=== PATIENT | female | born 1945 | race Caucasian/White ===

== ENCOUNTER 2023-12-04 17:42 | Emergency (ER) | payer MEDICARE, SELFPAY ==
[2023-12-04 17:46] VITALS: BP 176/106
[2023-12-04 18:14] LABS: % Basophils 0.5 % (0-2); % Eosinophils 1.6 % (0-6); % Immature Granulocytes 0.2 % (0-0.5); % Lymphocytes 32.3 % (20.5-51.1); % Monocytes 12.4 % (1.7-9.3); Absolute Eosinophils 0.1 10^3/uL (0-0.7); Absolute Monocytes 0.8 10^3/uL (0.1-0.6); Absolute Neutrophils 3.3 10^3/uL (1.4-6.5); Hematocrit 38.7 % (37.0-47.0); Hemoglobin 13.1 g/dL (12.0-16.0); Mean Corp Hgb Conc. 33.9 g/dL (33.0-37.0); Mean Corpuscular Hgb 30.2 pg (27.0-31.0); Mean Corpuscular Volume 89.2 fL (81.0-99.0); Mean Platelet Volume 9.3 fL (7.4-10.4); Nucleated Red Blood Cells % 0 %; Platelet Count 238 10^3/uL (130-400); Red Blood Cell Count 4.34 10^6/uL (4.20-5.40); Red Cell Dist. Width 14.6 % (11.5-14.5); White Blood Cell Count 6.2 10^3/uL (4.8-10.8)
--- NOTE | 2023-12-04 18:31 | ED.GENMED ---
History of Present Illness
General
Chief Complaint: Heart Rate Problem
Source: patient and spouse
Exam Limitations: none
Time Seen by Provider: 12/04/23 18:22
Nursing documentation reviewed up to this point in time: agreed with
History of Present Illness
History of Present Illness:
78-year-old female with palpitations, diaphoresis and hypertension. She has a history of atrial fibrillation and is on Eliquis. She has had 2 ablations. This was by Dr. Carl. She was seen 1 month ago in ED at [facility].
Past History
Past History
ED Past Medical History: Arrthythmia (Atrial fib), HTN and Hypercholesterolemia
ED Past Surgical History: Cardiac (Cardiac ablation)
Patient has exhibited threatening behavior?: No
PSI?: No
Social History
Tobacco: Non-smoker
Alcohol: Occasional
Personal: (Refused to answer as said this is not important)
Living: with family (patient unwilling to answer as again feels is not important,)
Family History
Family History: Negative Early CAD
Review of Systems
Review of Systems
Allergies reviewed?: Yes
All Other Systems: Not applicable
Constitutional: Reports no symptoms
EENT: Reports no symptoms
Respiratory: Reports no symptoms
Cardiac: Reports diaphoresis and palpitations
ABD/GI: Reports no symptoms
: Reports no symptoms
Musculoskeletal: Reports no symptoms
Skin: Reports no symptoms
Neurological: Reports no symptoms
Endocrine: Reports no symptoms
Hematologic/Lymphatic: Reports no symptoms
Psychiatric: Reports no symptoms
Phy Exam
Physical Exam
Physical Exam:
Physical Exam
General: no apparent distress, not acutely ill
Neck: supple. no meningeal signs. normal posterior pharynx
Heart: s1/s2 tachycardia, no murmur. equal radial
pulses.
HEENT: Pupils equal round reactive to light, EOMI
Lungs: no acute respiratory distress. clear bilaterally
Abdomen: normal bowel sounds. not tender. no CVAT
Neuro: alert and oriented. no focal neurological deficits cranial nerves II through XII intact
Skin: no rash
Psychiatric: well kept. interactive and cooperative
Extremities: no edema. no calf tenderness. negative homans. good distal pulses
Course
Orders/Labs/Results
Orders:
Orders
12/04/23 17:43
EKG [Electrocardiogram (*1)] Urgent
Reason for Study: Tachycardia
EKG- Treatment ONCE
12/04/23 17:58
Complete Blood Count/With Diff Urgent
Comprehensive Metabolic Panel Urgent
Troponin I Urgent
12/04/23 18:31
Electrocardiogram (*1) Urgent
Reason for Study: Abnormal EKG
EKG- Treatment ONCE
12/04/23 19:29
Amlodipine [Norvasc] 2.5 mg PO STAT STA
Abnormal Lab Results
12/04/23
17:58
RDW 14.6 H %
(11.5-14.5)
Absolute Monos (auto) 0.8 H 10^3/uL
(0.1-0.6)
Monocytes % 12.4 H %
(1.7-9.3)
BUN 18 H mg/dl
(7-17)
Glucose 107 H mg/dl
(70-99)
12/04/23 17:58
12/04/23 17:58
Vital Signs
Initial and Last Documented VS:
Initial Vital Signs
Temp Pulse Resp BP Pulse Ox
98.5 F 128 16 176/106 99
12/04/23 17:46 12/04/23 17:46 12/04/23 17:46 12/04/23 17:46 12/04/23 17:46
Last Documented Vital Signs
Temp Pulse Resp BP Pulse Ox
98.5 F 66 10 158/99 96
12/04/23 17:46 12/04/23 19:54 12/04/23 19:54 12/04/23 19:54 12/04/23 19:54
MDM/Problems Addressed
Differential Diagnosis Includes:
Atrial tachycardia, hypertension
MDM/Problems Addressed:
78-year-old female with paroxysmal atrial tachycardia and accelerated hypertension. Blood pressure improved in ED, and spontaneously converted to sinus rhythm in ED. Xysmal
Chronic conditions affecting care: HTN and Arrhythmia
Acute Exacerbation and/or Progression of Chronic Illness: HTN and Arrhythmia
*Pulse Oximetry
Patient hypoxic: no
*EKG
Interpreted by ED Provider?: Yes
EKG Intrepretation Date: 12/04/23
EKG Intrepretation Time: 17:46
Interpretation: abnormal
Comparison EKG: changes noted
Heart Rate: 103
Rate: tachycardiac
Rhythm: other (atrial tachycardia)
[place]: normal axis
Interval: second degree mobitz I
QRS Pattern: left vent hypertrophy
Ischemia: no ischemia
*Rinkman Interpretation
Rate: normal
Interpretation: normal
Heart Rate: 72
Rhythm: sinus
*Critical Care Note
Total Time (30-74mins, 75-104mins- exclusive of procedures): 30
comment:
Critical care statement: A total of 30 minutes of critical care time was provided for this patient. This includes management of unstable vital signs, evaluation of the patient at bedside, reviewing the patient's pertinent medical records, discussion
with consultants, review of old EKGs and review of pertinent medical records. This time with separate from time utilized to perform the aforementioned documented procedures
Data Reviewed
Review of Other/Old Records Reveals: Operative Reports (Prior cardiac ablation)
Patient Management
Social determinants of health affecting care: Living situation
Discussion with other providers: [employer] Supervisor (Cardiology, Dr. Sylvie Carl)
Escalation/DeEscalation of care consider admission/obs:
Admit not indicated
ED Attending Note
-
Portions of this chart may have been created with voice recognition software.� Occasional wrong word or��sound alike� substitutions may have occurred due to the inherent limitations of voice recognition software.
Discharge Plan
Departure
Patient Disposition: Home (Routine Discharge)
Date of Disposition: 12/04/23
Time of Disposition: 20:05
Patient with high blood pressure during this ER visit?: Yes
Condition: Good
Discharge Problem:
Paroxysmal atrial tachycardia, Hypertension
Instructions: Arrhythmias (DC), High Blood Pressure ED
Prescriptions:
New
amlodipine 2.5 mg tablet
2.5 mg PO DAILY Qty: 30 0RF
No Action
pravastatin [Pravachol] 40 MG tablet
40 mg PO QPM
ascorbic acid (vitamin C) [Vitamin C] 500 MG tablet
2,000 mg PO BID
hydrochlorothiazide 12.5 MG capsule
12.5 mg PO QPM
valsartan 40 MG tablet
80 mg PO DAILY
Eliquis 5 MG tablet
5 mg PO BID
flecainide 50 mg Tablet
50 mg PO Q12H
Referrals:
Anna Vilchis MD [Family Provider] -
Activity Restrictions/Additional Instructions:
Your heart rhythm changed to normal sinus rhythm in the emergency department. Amlodipine has been prescribed for your blood pressure.
Interventions
Interventions:
*Risk Screen - Suicide Last Done: 12/04/23 17:46
*General Assessment Last Done: 12/04/23 18:38
*Neglect/Abuse Screening Last Done: 12/04/23 18:38
ED- Fall Risk Assessment Last Done: 12/04/23 18:36
*ED COVID-19 Vaccine History Last Done: 12/04/23 18:38
*Nursing Disposition Last Done: 12/04/23 20:13
ED- Cardiac Assessment Last Done: 12/04/23 18:37
ED- Pulmonary Assessment Last Done: 12/04/23 18:37
Discharge Date and Time
Discharge Date/Time: 12/04/23 20:14
Print Language: YAKUT
[2023-12-04 18:35] VITALS: BMI 23.7
[2023-12-04 18:37] VITALS: BP 165/118
[2023-12-04 18:38] LABS: ALT (SGPT) 22 U/L (0-35); AST (SGOT) 33 U/L (14-36); Albumin 4.5 g/dl (3.5-5.0); Alkaline Phosphatase 73 U/L (38-126); Blood Urea Nitrogen 18 mg/dl (7-17); Calcium 9.6 mg/dl (8.4-10.2); Carbon Dioxide 26 mmol/L (22-30); Chloride 102 mmol/L (98-107); Estimated Creatinine Clearance 57 ml/min; Glucose 107 mg/dl (70-99); Potassium 4.4 mmol/L (3.5-5.1); Sodium 144 mmol/L (135-145); Total Bilirubin 0.6 mg/dl (0.2-1.3); Total Protein 7.3 g/dl (6.3-8.2); eGFR > 60.00
[2023-12-04 18:41] LABS: Troponin I < 0.012 ng/ml
[2023-12-04 19:00] VITALS: BP 151/112
[2023-12-04 19:19] VITALS: BP 156/101
[2023-12-04] MEDS: NORVASC 2.5 MG PO (19:35)
[2023-12-04 19:54] VITALS: BP 158/99
== END 2023-12-04 20:14 | disposition home or self-care (01) ==
LOC: EMR 17:42
PROVIDERS: Emergency Medicine; EMERGENCY PHYSICIAN Emergency Medicine; FAMILY PHYSICIAN Family Medicine
DX: I47.19 Other supraventricular tachycardia (principal); R61 Generalized hyperhidrosis; I10 Essential (primary) hypertension; E78.00 Pure hypercholesterolemia, unspecified; I48.91 Unspecified atrial fibrillation; Z79.01 Long term (current) use of anticoagulants
CPT/HCPCS: 99291; 80053; 84484; 85025; 93005